=== PATIENT | male | born 1985 | race Two or more races ===

== ENCOUNTER 2020-06-28 14:38 | Inpatient (IN) ==
--- NOTE | 2020-06-28 14:53 | Emergency Department Note ---
Impression & Plan Acute GI bleeding, Syncope, Abdominal pain ED Provider Note NAME: DELANO HAILE AGE: 35 SEX: M : 1985 ARRIVES VIA: Ambulance INFORMANT: Patient, ED PROVIDER(S): Luis Fernando Balderas DO CHIEF COMPLAINT: Syncope HPI: The patient is a 35-year-old male who presented to the emergency department for an evaluation of syncope. The patient has been having multiple episodes of syncope ever since this morning. He states that every time he goes to stand up he passes out. His significant other presented to the emergency department with him. He arrived via ambulance. The patient denies having any chest pain or difficulty breathing. He does complain of abdominal pain. He states he is had intermittent abdominal pain over the last few days. He did have black bowel movements last week but states that that resolved on its own. He denies having any nausea or vomiting. He has no diarrhea. He has no headache or chest pain at this time. He denies having similar symptoms in the past. He is not seen his family doctor for the specific symptoms but was seen recently by his primary care physician. ROS: See above HPI for pertinent positives & negatives. A total of 10 systems reviewed and were otherwise negative. PAST MEDICAL HISTORY: See Below PAST SURGICAL HISTORY: See Below FAMILY HISTORY: See Below SOCIAL HISTORY: See Below HOME MEDICATIONS: See Below ALLERGIES: See Below VITALS: See Below PHYSICAL EXAMINATION: GENERAL: Patient is awake alert in no acute distress patient is resting comfo rtably and showing no signs of anxiety EYES: The conjunctivae are clear. The pupils are round and reactive. EARS, NOSE, MOUTH AND THROAT: The nose is without any evidence of any deformity. NECK: The neck is nontender and supple. RESPIRATORY: Normal respiratory effort is noted there is no evidence of wheezing rhonchi or rales CARDIOVASCULAR: Regular rate and rhythm noted there no murmurs rubs or gallops normal S1 normal S2. GASTROINTESTINAL: The lower abdomen is tender to palpation. There is no guarding rigidity. Rectal exam revealed maroon stool which was strongly heme positive. BACK: No midline tenderness or or step-off noted range of motion in flexion extension as well as rotation no signs of muscle spasm noted MUSCULOSKELETAL/EXTREMITIES: There is no evidence of gross deformity full range of motion is noted in the hips and shoulders. SKIN: There is no obvious evidence of any rash. There are no petechiae, pallor or cyanosis noted. NEUROLOGIC: Patient is awake alert and oriented x3 strength is symmetric patellar reflexes are 2+ bilaterally MEDICAL DECISION MAKING: The patient is a 35-year-old male who presented to the emergency department after having syncope. The patient had multiple episodes of syncope today. He was also experiencing abdominal pain. His physical exam was not consistent with an acute surgical abdomen however he did have maroon stool that was strongly heme positive. I discussed the patient's laboratory and radiographic studies with him. The patient was feeling much better after IV fluids. [facility] and put in [facility] orders. Triage Nursing notes reviewed. Prior medical records reviewed Vital Signs: reviewed and remarkable for no significant abnormalities Differential diagnosis: Vasovagal event, dehydration, infection, hypoglycemia, electrolyte abnorm alities, cardiac sources, intracerebral event, pulmonary embolism, seizure, toxicologic, neurologic, as well as other pathologies. ER treatment provided: See below Diagnostics interpreted by me: ECG: EKG was obtained in the emergency department. My interpretation is normal sinus rhythm at 88 bpm. There was no ectopy. There was no acute ST segment abnormalities. No previous tracing was available for comparison. Cardiac Monitoring: An order was placed for continuous cardiac monitoring. The monitor shows a rate of 92 bpm With sinus rhythm. Laboratory studies: As stated above and show below. Imaging studies: See below Consultation(s): 182: [facility] but did not return the call to me. Admission orders were placed Past Med/Surg History Medical History (Updated 06/28/20 @ 19:50 by Luis Fernando Balderas DO) Hx of fracture of tibia Social History (Updated 06/28/20 @ 14:53 by Luis Fernando Balderas DO) Smoking Status: Former smoker Hx Alcohol Use: No Hx Substance Use: No Preferred Language: Croatian Communication Ability: Effective Hand Or Machine Paster Required: No Beliefs That Will Affect Care: None Current Living Situation: Spouse and Family Other Information That Helps Us Care for You: No Feels Safe at Home: Yes Safety Concerns: Feels Safe At This Time Allergies Allergies Allergy/AdvReac Type Severity Reaction Status Date / Time No Known Allergies Allergy Unknown Verified 06/28/20 18:38 Home Meds Home Medications Medication Instructions Recorded Confirmed albuterol sulfate 2 puff INHALATION Q4 PRN 06/28/20 06/28/20 fexofenadine [Alisha Allergy] 180 mg PO DAILY PRN 06/28/20 06/28/20 fluticasone propionate [Flovent 2 puff INHALATION BID 06/28/20 06/28/20 HFA] Results & Data (ED) Vital Signs Vital Signs - 24 hr 06/28/20 14:47 06/28/20 17:17 06/28/20 18:00 Temperature 36.8 C Temperature Source Oral Pulse Rate 86 Pulse Rate [Finger] 76 81 Respiratory Rate 18 16 18 Respiratory Effort / Characteristics Non-Labored Respiratory Depth Normal Blood Pressure 128/82 Blood Pressure [Right Arm] 119/72 104/77 Blood Pressure Mean 97 Blood Pressure Mean [Right Arm] 87 86 Pulse Oximetry 97 97 97 Oxygen Delivery Method Room Air Room Air Sepsis Recent Fever Within 48 Hours No Sepsis New/Unexplained Change in Mental Status No Sepsis Action Taken by Nursing No Action Required Home Medications Current Medication List: was personally reviewed by me Laboratory Data Attestation: I reviewed the patient's lab results. Result diagrams: 06/28/20 14:45 06/28/20 14:45 Lab Results 06/28/20 06/28/20 06/28/20 Range/Units 14:45 14:45 14:45 WBC 7.08 (4.8-10.8) K/uL RBC 3.66 L (4.7-6.1) M/uL Hgb 11.0 L (14.0-18.0) g/dL Hct 33.2 L (42-52) % MCV 90.7 (80-100) fL MCH 30.1 (25-34) pg MCHC 33.1 (32-36) g/dL RDW Std Deviation 42.8 (36.4-46.3) fL RDW Coeff of Hayder 12.9 (11.5-14.5) % Plt Count 247 (130-400) K/uL MPV 9.5 (7.4-10.4) fL Immature Gran % (Auto) 0.1 % Neut % (Auto) 73.0 % Lymph % (Auto) 18.6 % [place] % (Auto) 7.6 % Eos % (Auto) 0.6 % Baso % (Auto) 0.1 % Neut # (Auto) 5.16 (1.4-6.5) K/uL Lymph # (Auto) 1.32 (1.2-3.4) K/uL [place] # (Auto) 0.54 (0.11-0.59) K/uL Eos # (Auto) 0.04 (0-0.5) K/uL Baso # (Auto) 0.01 (0-0.2) K/uL Immature Gran # (Auto) 0.01 (0.00-0.02) K/uL PT 11.0 (9.0-12.0) Seconds INR 1.0 (0.9-1.1) APTT 21.7 (21.0-31.0) Seconds PTT Ratio 0.8 Sodium 138 (136-145) mmol/L Potassium 4.7 (3.5-5.1) mmol/L Chloride 108 H (98-107) mmol/L Carbon Dioxide 25 (21-32) mmol/L Anion Gap 6.0 (3-11) BUN 25 H (7-18) mg/dl Creatinine 1.02 (0.6-1.4) mg/dl Est Cr Clr Drug Dosing 135.5 ml/min Est GFR ( Amer) 109.1 Est GFR (Non-Af Amer) 94.1 BUN/Creatinine Ratio 24.4 H (10-20) Glucose 129 H (70-99) mg/dl Calcium 8.3 L (8.5-10.1) mg/dl Magnesium 2.0 (1.8-2.4) mg/dl Total Bilirubin 0.4 (0.2-1) mg/dl AST 13 L (15-37) U/L ALT 21 (12-78) U/L Alkaline Phosphatase 42 L (45-117) U/L Total Creatine Kinase 182 (39-308) U/L CK-MB (CK-2) < 1.0 (0.5-3.6) ng/ml CK/CKMB % Calc TNP Troponin I 0.019 (0-0.045) ng/ml Total Protein 6.7 (6.4-8.2) gm/dl Albumin 3.4 (3.4-5.0) gm/dl Globulin 3.3 (2.5-4.0) gm/dl Albumin/Globulin Ratio 1.0 (0.9-2) Lipase 84 (73-393) U/L TSH 1.130 (0.300-4.500) uIu/ml Urine Color Urine Appearance (Clear) Urine pH (4.5-7.5) Ur Specific [place] (1.000-1.030) Urine Protein (Negative) Urine Glucose (UA) (Negative) Urine Ketones (Negative) Urine Blood (Negative) Urine Nitrite (Negative) Urine Bilirubin (Negative) Urine Urobilinogen (Negative) Ur Leukocyte Esterase (Negative) Blood Type Antibody Screen 06/28/20 06/28/20 Range/Units 15:18 17:15 WBC (4.8-10.8) K/uL RBC (4.7-6.1) M/uL Hgb (14.0-18.0) g/dL Hct (42-52) % MCV (80-100) fL MCH (25-34) pg MCHC (32-36) g/dL RDW Std Deviation (36.4-46.3) fL RDW Coeff of Hayder (11.5-14.5) % Plt Count (130-400) K/uL MPV (7.4-10.4) fL Immature Gran % (Auto) % Neut % (Auto) % Lymph % (Auto) % [place] % (Auto) % Eos % (Auto) % Baso % (Auto) % Neut # (Auto) (1.4-6.5) K/uL Lymph # (Auto) (1.2-3.4) K/uL [place] # (Auto) (0.11-0.59) K/uL Eos # (Auto) (0-0.5) K/uL Baso # (Auto) (0-0.2) K/uL Immature Gran # (Auto) (0.00-0.02) K/uL PT (9.0-12.0) Seconds INR (0.9-1.1) APTT (21.0-31.0) Seconds PTT Ratio Sodium (136-145) mmol/L Potassium (3.5-5.1) mmol/L Chloride (98-107) mmol/L Carbon Dioxide (21-32) mmol/L Anion Gap (3-11) BUN (7-18) mg/dl Creatinine (0.6-1.4) mg/dl Est Cr Clr Drug Dosing ml/min Est GFR ( Amer) Est GFR (Non-Af Amer) BUN/Creatinine Ratio (10-20) Glucose (70-99) mg/dl Calcium (8.5-10.1) mg/dl Magnesium (1.8-2.4) mg/dl Total Bilirubin (0.2-1) mg/dl AST (15-37) U/L ALT (12-78) U/L Alkaline Phosphatase (45-117) U/L Total Creatine Kinase (39-308) U/L CK-MB (CK-2) (0.5-3.6) ng/ml CK/CKMB % Calc Troponin I (0-0.045) ng/ml Total Protein (6.4-8.2) gm/dl Albumin (3.4-5.0) gm/dl Globulin (2.5-4.0) gm/dl Albumin/Globulin Ratio (0.9-2) Lipase (73-393) U/L TSH (0.300-4.500) uIu/ml Urine Color Yellow Urine Appearance Clear (Clear) Urine pH 7.5 (4.5-7.5) Ur Specific [place] 1.018 (1.000-1.030) Urine Protein Negative (Negative) Urine Glucose (UA) Negative (Negative) Urine Ketones Negative (Negative) Urine Blood Negative (Negative) Urine Nitrite Negative (Negative) Urine Bilirubin Negative (Negative) Urine Urobilinogen Negative (Negative) Ur Leukocyte Esterase Negative (Negative) Blood Type A Positive Antibody Screen NEGATIVE Administered Medications Discontinued Medications Sodium Chloride (Nss 1000ml) 1,000 mls @ 999 mls/hr IV .Q1H1M ONUR Stop: 06/28/20 16:00 Last Infusion: 06/28/20 16:50 Dose: 0 mls/hr Documented by: [id number] Admin: 06/28/20 15:32 Dose: 999 mls/hr Documented by: [id number] Pantoprazole Sodium 40 mg/ (Syringe) 10 mls @ 5 mls/min IV NOW ONE Stop: 06/28/20 14:56 Last Admin: 06/28/20 15:32 Dose: 5 mls/min Documented by: [id number] Ioversol (Ioversol 100ml) 94 ml IV ONCE ONE Stop: 06/28/20 16:10 Last Admin: 06/28/20 16:09 Dose: 94 ml Documented by: [id number] Imaging Data Radiologist's Impression: CT head/brain wo con CLINICAL HISTORY: syncope COMPARISON STUDY: No previous studies for comparison. TECHNIQUE: Axial CT of the brain is performed from the vertex to the skull base. IV contrast was not administered for this examination. A dose lowering technique was utilized adhering to the principles of ALARA. CT DOSE: 1865.23 mGy.cm FINDINGS: No intra or extra-axial mass lesions are visualized. There is no CT evidence of acute cortical infarction. There is no evidence of midline shift. There is no acute hemorrhage. No calvarial fractures are visualized. There is no evidence of pathologic ventricular dilatation. There is no evidence of acute sinusitis IMPRESSION: Normal noncontrast head CT. ACT 112: Negative or not required by law. Electronically signed by: Alireza Rai M.D. 06/28/2020 4:17 PM Dictated: 06/28/20 1616 Transcribed: 06/28/20 1616 XR chest 1V portable CLINICAL HISTORY: syncope COMPARISON STUDY: No previous studies for comparison. FINDINGS: The cardiac and mediastinal contours are normal. There is no evidence of focal pulmonary consolidation. There is no evidence of failure. No pleural effusions are visualized.[ IMPRESSION: No active disease in the chest. ACT 112: Negative or not required by law. Electronically signed by: Alireza Rai M.D. 06/28/2020 3:25 PM Dictated: 06/28/20 1525 Transcribed: 06/28/[address] abd pelvis IV con only CLINICAL HISTORY: Abdominal pain and syncope COMPARISON STUDY: None. TECHNIQUE: The patient was scanned in a dynamic helical fashion during intravenous administration of 94 cc of Optiray 320 A dose lowering technique was utilized adhering to the principles of ALARA. CT DOSE: FINDINGS: Lower chest: There are minimal basilar atelectatic changes. There is a small hiatal hernia Liver: The contrast-enhanced liver is normal in size, contour, and attenuation. There is no intrahepatic biliary ductal dilatation. The hepatic veins and portal veins are patent. Gallbladder: Contracted Spleen: Normal in size and attenuation. Pancreas: Unremarkable. Adrenal glands: Unremarkable. Kidneys: There is symmetric renal cortical enhancement. The kidneys are normal in size without hydronephrosis. Bowel: There are no transition zones to indicate bowel obstruction. The appendix appears normal. There is no evidence of acute diverticulitis. There is suggestion of mild jejunal wall thickening. There are multiple fluid-filled small bowel loops. There are scattered colonic air-fluid levels. The findings likely represent a mild enteritis. Peritoneum: There is no intraperitoneal free air or abdominal ascites. There is a small fat-containing right inguinal hernia versus lipomatous inguinal canal Vasculature: The abdominal aorta is normal in course and caliber. Adenopathy: None. Pelvic viscera: The bladder, and pelvic viscera are unremarkable. Skeletal structures: No destructive osseous lesions are seen. IMPRESSION: 1. No evidence of bowel obstruction. No evidence of free air 2. Normal appendix. No evidence of acute diverticulitis 3. Fluid-filled loops of small bowel and colon with mild jejunal wall thickening. The findings are suggestive of a mild enteritis ACT 112: Negative or not required by law. Electronically signed by: Alireza Rai M.D. 06/28/2020 4:21 PM Dictated: 06/28/20 1617 Transcribed: 06/28/20 1617 Blood Pressure Blood Pressure Findings: Normal blood pressure Discharge Plan Visit Data Chief Complaint: Syncope Stated Complaint: syncope ED Provider: Luis Fernando Balderas Discharge Problem: Acute GI bleeding, Syncope, Abdominal pain Patient Disposition: Admitted As Inpatient Condition: Good Discharge Instructions Interventions: ED Discharge Assessment Last Done: 06/28/20 18:49
[2020-06-28] MEDS ORDERED: PANTOprazole 40 MG in SYRINGE 0 ML IV ONE (14:55)
[2020-06-28] MEDS ORDERED: SODIUM CHLORIDE 0.9% 1000ML 1,000 ML IV SCH (15:00)
[2020-06-28 15:07] LABS: Basophils # (auto) 0.01 K/uL (0-0.2); Basophils % (auto) 0.1 %; Eosinophils # (auto) 0.04 K/uL (0-0.5); Eosinophils % (auto) 0.6 %; Hematocrit (blood only) 33.2 % (42-52); Immature Granulocytes # (auto) 0.01 K/uL (0.00-0.02); Immature Granulocytes % (auto) 0.1 %; Lymphocytes # (auto) 1.32 K/uL (1.2-3.4); Lymphocytes % (auto) 18.6 %; Mean Corpuscular Hemoglobin 30.1 pg (25-34); Mean Corpuscular Hgb Conc 33.1 g/dL (32-36); Mean Corpuscular Volume 90.7 fL (80-100); Mean Platelet Volume 9.5 fL (7.4-10.4); Monocytes # (auto) 0.54 K/uL (0.11-0.59); Monocytes % (auto) 7.6 %; Neutrophils # (auto) 5.16 K/uL (1.4-6.5); Platelet Count 247 K/uL (130-400); RDW Coefficient of Variation 12.9 % (11.5-14.5); RDW Standard Deviation 42.8 fL (36.4-46.3); Red Blood Count 3.66 M/uL (4.7-6.1); White Blood Count 7.08 K/uL (4.8-10.8)
[2020-06-28 15:14] LABS: Partial Thromboplastin Ratio 0.8; Partial Thromboplastin Time 21.7 Seconds (21.0-31.0)
[2020-06-28 15:25] LABS: Alanine Aminotransferase 21 U/L (12-78); Albumin Level 3.4 gm/dl (3.4-5.0); Aspartate Aminotransferase 13 U/L (15-37); BUN Creatinine Ratio 24.4 (10-20); Blood Urea Nitrogen 25 mg/dl (7-18); Calcium 8.3 mg/dl (8.5-10.1); Carbon Dioxide 25 mmol/L (21-32); Chloride 108 mmol/L (98-107); Creatinine Clr Calc Pharmacy 135.5 ml/min; Est GFR (African American) 109.1; Est GFR (Non-African American) 94.1; Glucose 129 mg/dl (70-99); Lipase 84 U/L (73-393); Potassium 4.7 mmol/L (3.5-5.1); Sodium 138 mmol/L (136-145)
--- NOTE | 2020-06-28 15:27 | XRay Report ---
XR chest 1V portable CLINICAL HISTORY: syncope COMPARISON STUDY: No previous studies for comparison. FINDINGS: The cardiac and mediastinal contours are normal. There is no evidence of focal pulmonary co nsolidation. There is no evidence of failure. No pleural effusions are visualized.[ IMPRESSION: No active disease in the chest. ACT 112: Negative or not required by law. Electronically signed by: Alireza Rai M.D. 06/28/2020 3:25 PM
[2020-06-28 15:36] LABS: Alkaline Phosphatase 42 U/L (45-117); Bilirubin,Total 0.4 mg/dl (0.2-1); Creatine Kinase 182 U/L (39-308); Creatine Kinase MB < 1.0 ng/ml (0.5-3.6); Globulin 3.3 gm/dl (2.5-4.0); Total Protein 6.7 gm/dl (6.4-8.2); Troponin I 0.019 ng/ml (0-0.045)
[2020-06-28] MEDS ORDERED: IOVERSOL 100ml IV ONE (16:09)
--- NOTE | 2020-06-28 16:18 | CT Scan Report ---
CT head/brain wo con CLINICAL HISTORY: syncope COMPARISON STUDY: No previous studies for comparison. TECHNIQUE: Axial CT of the brain is performed from the vertex to the skull base. IV contrast was not administered for this examination. A dose lowering technique was utilized adhering to the principles of ALARA. CT DOSE: 1865.23 mGy.cm FINDINGS: No intra or extra-axial mass lesions are visualized. There is no CT evidence of acute cortical infarc tion. There is no evidence of midline shift. There is no acute hemorrhage. No calvarial fractures ar e visualized. There is no evidence of pathologic ventricular dilatation. There is no evidence of acute sinusitis IMPRESSION: Normal noncontrast head CT. ACT 112: Negative or not required by law. Electronically signed by: Alireza Rai M.D. 06/28/2020 4:17 PM
--- NOTE | 2020-06-28 16:23 | CT Scan Report ---
CT abd pelvis IV con only CLINICAL HISTORY: Abdominal pain and syncope COMPARISON STUDY: None. TECHNIQUE: The patient was scanned in a dynamic helical fashion during intravenous administration of 94 cc of Optiray 320 A dose lowering technique was utilized adhering to the principles of ALARA. CT DOSE: FINDINGS: Lower chest: There are minimal basilar atelectatic changes. There is a small hiatal hernia Liver: The contrast-enhanced liver is normal in size, contour, and attenuation. There is no intrahepa tic biliary ductal dilatation. The hepatic veins and portal veins are patent. Gallbladder: Contracted Spleen: Normal in size and attenuation. Pancreas: Unremarkable. Adrenal glands: Unremarkable. Kidneys: There is symmetric renal cortical enhancement. The kidneys are normal in size without hydron ephrosis. Bowel: There are no transition zones to indicate bowel obstruction. The appendix appears normal. Ther e is no evidence of acute diverticulitis. There is suggestion of mild jejunal wall thickening. There are multiple fluid-filled small bowel loops. There are scattered colonic air-fluid levels. The findin gs likely represent a mild enteritis. Peritoneum: There is no intraperitoneal free air or abdominal ascites. There is a small fat-containin g right inguinal hernia versus lipomatous inguinal canal Vasculature: The abdominal aorta is normal in course and caliber. Adenopathy: None. Pelvic viscera: The bladder, and pelvic viscera are unremarkable. Skeletal structures: No destructive osseous lesions are seen. IMPRESSION: 1. No evidence of bowel obstruction. No evidence of free air 2. Normal appendix. No evidence of acute diverticulitis 3. Fluid-filled loops of small bowel and colon with mild jejunal wall thickening. The findings are voss ggestive of a mild enteritis ACT 112: Negative or not required by law. Electronically signed by: Alireza Rai M.D. 06/28/2020 4:21 PM
[2020-06-28 17:26] LABS: Appearance Urine Clear (Clear); Bilirubin Urine Negative (Negative); Blood Urine Negative (Negative); Color Urine Yellow; Glucose Urine UA Negative (Negative); Ketones Urine Negative (Negative); Leukocyte Esterase Urine Negative (Negative); Nitrite Urine Negative (Negative); Protein Urine Negative (Negative); Specific Gravity Urine 1.018 (1.000-1.030); Urobilinogen Urine Negative (Negative); pH Urine 7.5 (4.5-7.5)
--- NOTE | 2020-06-28 18:11 | History & Physical Report ---
Date of Service June 28, 2020 Assessment & Plan (1) Syncope: This is a 35-year-old male that presented with 3 episodes of syncope earlier today. He had no other injury. He did have loss of consciousness for up to 30 or 35 seconds. He also had heme positive stool with SAYRA by ER physician Recommendations: Patient has no history of prior heart disease or syncope. He denies any substance or tobacco abuse We will request an echocardiogram with bubble study We will also request carotid duplex Patient does have orthostatic hypotension on examination values at bedside are as follows * Laying down: SBP 131, HR 76 * Sitting: SBP 116, HR 88 * Standing SBP 104, HR 114 We will hydrate the patient with 125 mL/h of normal saline Check repeat orthostatic blood pressures Ambulation with assistance Patient has been hemodynamically stable throughout this hospital admission No evidence of sepsis We will monitor on telemetry floor (2) Acute GI bleeding: Patient reports dark stools 2 weeks ago with minor abdominal pain for 2 to 3 days Guaiac positive in the emergency room Will start on pantoprazole GI consult is been requested Follow serial H&H Follow on telemetry (3) Intermittent asthma: Home medications include albuterol MDI and Flovent HFA Also takes an antihistamine at home daily as needed Oxygenation adequate on room air No adventitious breath sounds Continue to follow (4) DVT prophylaxis: We will hold chemical prophylaxis in setting of guaiac positive stool SCDs IRA hose Please refer to Dr. Shields's addendum for further recommendations. History of Present Illness Primary Care Provider: Clyde Lakhani MD Attending: Dr. Shields This is a 35-year-old male with a past medical history including intermittent asthma and allergic rhinitis due to pollen. The patient presents today with acute syncope and reports 3 episodes of fainting with loss of consciousness earlier today. His was present and witnessed this. He had no injuries when falling. In the emergency department he was found to have orthostatic hypotension with appropriate response to heart rate and elevation. He does complain of some buzzing or bubbling in his ears when he sits up quickly or when he bends over at the waist up. This was a prodrome prior to his fainting earlier today. Patient denies any substance abuse. He does state that 2 weeks ago he had dark stool and some mild abdominal pain which resolved after 2 or 3 days. He denies any melena, hematochezia, or bright red blood per rectum. He denies any history of hemorrhoids. He denies any shortness of breath. He has no tachyarrhythmias. He denies any cough. He has no fever or chills. He has no history of peptic ulcer disease. He is not on a PPI or H2 jeanie. His appetite is been normal with no abdominal pain before during or after meals. He has no headache or h istory of migraines. 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 He wears a respirator whenever around vapors or chemicals. He has no tobacco abuse history He denies ethanol abuse He is and has 3 children at home. Allergies Allergy/AdvReac Type Severity Reaction Status Date / Time No Known Allergies Allergy Unknown Verified 06/28/20 18:38 Home Medications Home Medications Medication Instructions Recorded Confirmed Type albuterol sulfate 2 puff INHALATION Q4 PRN 06/28/20 06/28/20 History fexofenadine [Alisha Allergy] 180 mg PO DAILY PRN 06/28/20 06/28/20 History fluticasone propionate [Flovent 2 puff INHALATION BID 06/28/20 06/28/20 History HFA] Past Med/Surg History Medical History (Updated 06/28/20 @ 20:23 by Willi Clement PA-C) Allergic rhinitis Hx of fracture of tibia Intermittent asthma Surgical History (Updated 06/28/20 @ 20:23 by Willi Clement PA-C) No significant past surgical history Family History (Updated 06/28/20 @ 20:24 by Willi Clement PA-C) Other Family history non-contributory Social History (Updated 06/28/20 @ 14:53 by Luis Fernando Balderas DO) Smoking Status: Former smoker Hx Alcohol Use: No Hx Substance Use: No Preferred Language: Tristanian Communication Ability: Effective Veneer Marker Required: No Beliefs That Will Affect Care: None Current Living Situation: Spouse and Family Other Information That Helps Us Care for You: No Feels Safe at Home: Yes Safety Concerns: Feels Safe At This Time Review of Systems Review of Systems: All systems reviewed & are unremarkable except as noted in HPI & below Physical Exam Physical Exam: GENERAL : No acute distress EYES: No icterus, gaze conjugate NOSE: No evidence of epistaxis MOUTH: No lesions or candidiasis NECK: Supple LUNGS: CTA B/L, no wheezes, rales or rhonchi HEART: Regular, rate controlled ABDOMEN: Soft, NT, ND, BS Present EXTREMITIES: No LE edema, pedal pulses intact NEURO: A&OX3 Results & Data Results & Data ([facility]) Vital Signs (Past 12 Hours) Vital Signs Temp Pulse Pulse Resp BP BP Pulse Ox 06/28/20 17:17 76 16 119/72 97 06/28/20 14:47 36.8 C 86 18 128/82 97 Laboratory Results 06/28/20 14:45 06/28/20 14:45 INR 1.0 (0.9-1.1) 06/28/20 14:[address] head/brain wo con CLINICAL HISTORY: syncope COMPARISON STUDY: No previous studies for comparison. TECHNIQUE: Axial CT of the brain is performed from the vertex to the skull base. IV contrast was not administered for this examination. A dose lowering technique was utilized adhering to the principles of ALARA. CT DOSE: 1865.23 mGy.cm FINDINGS: No intra or extra-axial mass lesions are visualized. There is no CT evidence of acute cortical infarction. There is no evidence of midline shift. There is no acute hemorrhage. No calvarial fractures are visualized. There is no evidence of pathologic ventricular dilatation. There is no evidence of acute sinusitis IMPRESSION: Normal noncontrast head CT. ACT 112: Negative or not required by law. Electronically signed by: Alireza Rai M.D. 06/28/2020 4:17 PM XR chest 1V portable CLINICAL HISTORY: syncope COMPARISON STUDY: No previous studies for comparison. FINDINGS: The cardiac and mediastinal contours are normal. There is no evidence of focal pulmonary consolidation. There is no evidence of failure. No pleural effusions are visualized.[ IMPRESSION: No active disease in the chest. ACT 112: Negative or not required by law. Electronically signed by: Alireza Rai M.D. 06/28/2020 3:[address] abd pelvis IV con only CLINICAL HISTORY: Abdominal pain and syncope COMPARISON STUDY: None. TECHNIQUE: The patient was scanned in a dynamic helical fashion during intravenous administration of 94 cc of Optiray 320 A dose lowering technique was utilized adhering to the principles of ALARA. CT DOSE: FINDINGS: Lower chest: There are minimal basilar atelectatic changes. There is a small hiatal hernia Liver: The contrast-enhanced liver is normal in size, contour, and attenuation. There is no intrahepatic biliary ductal dilatation. The hepatic veins and portal veins are patent. Gallbladder: Contracted Spleen: Normal in size and attenuation. Pancreas: Unremarkable. Adrenal glands: Unremarkable. Kidneys: There is symmetric renal cortical enhancement. The kidneys are normal in size without hydronephrosis. Bowel: There are no transition zones to indicate bowel obstruction. The appendix appears normal. There is no evidence of acute diverticulitis. There is suggestion of mild jejunal wall thickening. There are multiple fluid-filled small bowel loops. There are scattered colonic air-fluid levels. The findings likely represent a mild enteritis. Peritoneum: There is no intraperitoneal free air or abdominal ascites. There is a small fat-containing right inguinal hernia versus lipomatous inguinal canal Vasculature: The abdominal aorta is normal in course and caliber. Adenopathy: None. Pelvic viscera: The bladder, and pelvic viscera are unremarkable. Skeletal structures: No destructive osseous lesions are seen. IMPRESSION: 1. No evidence of bowel obstruction. No evidence of free air 2. Normal appendix. No evidence of acute diverticulitis 3. Fluid-filled loops of small bowel and colon with mild jejunal wall thickening. The findings are suggestive of a mild enteritis ACT 112: Negative or not required by law. Electronically signed by: Alireza Rai M.D. 06/28/2020 4:21 PM Code Status & VTE Plan Code Status Level I: Full resuscitation VTE Prophylaxis Plan VTE Prophylaxis will be ordered: Yes Reason for no VTE drug order: Contraindicated Supervising Physician Co-Signing Physician Notes 35 yoM with acute syncope and orthostatic hypotension that began today. reports black stools for 2-3 dys 2 weeks ago which resolved spontaneously. This was not associated with lightheadedness, however, he states he has experienced stomach pain liz at night when lying down. He sees no association with food. He has a daughter who recently had the same issues with syncope x 3, and subsequently developed a severe GI illness including nausea and diarrhea. She is improved with just supportive care. His CT a/p reveals evidence of enteritis and he reports feeling his bowels "grumbling" as if he will need to have an urgent bowel movement soon. He was given 1L NSS in ER but is still orthostatic on the floor. Additional fluids ordered overnight. +FOBT in Er, however, I don't expect an acute GI bleed here because with orthostasis, he should have lost at least 15% of his blood volume and yet there is no overt bleeding. Suspect this is more consistent with what his daughter recently had, such as v iral AGE. Unremarkable physical aside from dizziness with changing position to sitting or standing and some mild TTP in LUQ over stomach area. He denies NSAIDs use, steroids or heavy alcohol use. Will add GI consult for evaluation, hold on Protonix and add stool culture with H pylori screen. Cont telemetry monitoring overnight and workup as above with echo and carotids in am. DO Cornelius (1) Syncope Syncope type: unspecified Qualified Code(s): R55 - Syncope and collapse
[2020-06-28] MEDS ORDERED: MAGNESIUM HYDROXIDE SUSP 30 ML UDC PO PRN (19:17)
[2020-06-28] MEDS ORDERED: ONDANSETRON INJ 2 MG/ML 2 ML VIAL IV PRN (19:17)
[2020-06-28] MEDS ORDERED: ACETAMINOPHEN 325 MG TAB PO PRN (19:17)
[2020-06-28] MEDS ORDERED: POLYETHYLENE (MIRALAX) 17 GM PACK PO PRN (19:17)
[2020-06-28] MEDS ORDERED: ALUMINUM/MAGNESIUM SUSP 30 ML UDC PO PRN (19:17)
[2020-06-28] MEDS: SODIUM CHLORIDE 0.9% 1000ML 1,000 ML IV SCH (20:00)
[2020-06-28] MEDS ORDERED: HEPARIN SOD 5,000 UNIT/0.5 ML VIAL SQ SCH (21:00)
[2020-06-29] MEDS: SODIUM CHLORIDE 0.9% 1000ML 1,000 ML IV SCH ×3 (03:55→20:01)
[2020-06-29 06:41] LABS: Basophils # (auto) 0.01 K/uL (0-0.2); Basophils % (auto) 0.2 %; Eosinophils # (auto) 0.06 K/uL (0-0.5); Eosinophils % (auto) 1.1 %; Hematocrit (blood only) 28.8 % (42-52); Hemoglobin 9.3 g/dL (14.0-18.0); Immature Granulocytes # (auto) 0.01 K/uL (0.00-0.02); Immature Granulocytes % (auto) 0.2 %; Lymphocytes # (auto) 2.02 K/uL (1.2-3.4); Lymphocytes % (auto) 35.9 %; Mean Corpuscular Hemoglobin 29.4 pg (25-34); Mean Corpuscular Hgb Conc 32.3 g/dL (32-36); Mean Corpuscular Volume 91.1 fL (80-100); Monocytes # (auto) 0.32 K/uL (0.11-0.59); Monocytes % (auto) 5.7 %; Neutrophils % (auto) 56.9 %; Platelet Count 195 K/uL (130-400); RDW Coefficient of Variation 13.3 % (11.5-14.5); Red Blood Count 3.16 M/uL (4.7-6.1); White Blood Count 5.62 K/uL (4.8-10.8)
[2020-06-29 07:11] LABS: BUN Creatinine Ratio 18.9 (10-20); Calcium 8.1 mg/dl (8.5-10.1); Creatinine Clr Calc Pharmacy 138.6 ml/min; Est GFR (African American) 113.1; Est GFR (Non-African American) 97.6; Potassium 4.1 mmol/L (3.5-5.1)
[2020-06-29] MEDS ORDERED: SODIUM CHLORIDE 0.9% 1000ML 1,000 ML IV ONE (08:38)
--- NOTE | 2020-06-29 09:09 | Ultrasound Report ---
CAROTID ARTERY ULTRASOUND CLINICAL HISTORY: Syncope COMPARISON STUDY: None. TECHNIQUE: Real-time, grayscale, and color Doppler sonography of the carotid and vertebral arteries w as performed. Images were viewed in the transverse and longitudinal planes. FINDINGS: There is no atherosclerotic plaque. Velocity measurements are listed below. COMMON CAROTID PEAK SYSTOLIC VELOCITY (CM/S): RIGHT 113 LEFT 155 ICA PEAK SYSTOLIC VELOCITY (CM/S): RIGHT 79 LEFT 99 Systolic ratios between the internal to common carotid arteries are normal. Antegrade flow is seen in the vertebral arteries. The external carotid arteries are patent. Blood pressure in the right arm measured 164/78. Blood pressure in the left arm measured 140/74. IMPRESSION: No evidence for a hemodynamically significant stenosis. ACT 112: Negative or not required by law. Electronically signed by: Mitchel Jacobo M.D. 06/29/2020 9:08 AM
--- NOTE | 2020-06-29 09:50 | Electrocardiogram Report ---
Test Reason : Blood Pressure : / mmHG Vent. Rate : 088 BPM Atrial Rate : 088 BPM P-R Int : 154 ms QRS Dur : 078 ms QT Int : 338 ms P-R-T Axes : 049 044 023 degrees QTc Int : 408 ms Normal sinus rhythm Normal ECG No previous ECGs available Confirmed by Todd Garcia ([id number]) on 06/29/2020 9:50:11 AM Referred By: Confirmed By:Todd Garcia
--- NOTE | 2020-06-29 10:05 | Electrocardiogram Report ---
Test Reason : Blood Pressure : / mmHG Vent. Rate : 064 BPM Atrial Rate : 064 BPM P-R Int : 160 ms QRS Dur : 088 ms QT Int : 394 ms P-R-T Axes : 069 076 053 degrees QTc Int : 406 ms Normal sinus rhythm with sinus arrhythmia Normal ECG When compared with ECG of 28-JUN-2020 14:51, (unconfirmed) No significant change was found Confirmed by Todd Garcia ([id number]) on 06/29/2020 10:05:30 AM Referred By: REFERRED SELF Confirmed By:Todd Garcia
--- NOTE | 2020-06-29 11:20 | Gastrointestinal Consultation ---
Date of Consultation June 29, 2020 Assessment & Plan (1) Acute GI bleeding: (2) Abdominal pain: (3) Melena: Increase Pantoprazole to 40 mg by mouth twice daily NPO after midnight Clear liquid diet today EGD tomorrow for further evaluation of cause of melena History of Present Illness Reason for Consultation: Syncope, Heme positive stool, melena Attending Physician: Alem Shields DO History of Present Illness 35 yo CM who presented to the ER with multiple episodes of syncope. He did not mid-epigastric abdominal pain rated as 6/10 in intensity, non-radiating described as sharp and burning, which was relieved with OTC TUMS, and exacerbated by spicy foods. He states that he did have some dark stools approximately 2 weeks ago as well. He did have a negative CT head and abd/pelvis in the ER, and was subsequently admitted and placed on pantoprazole therapy. He was noted to have an H/H of 11/33.2 on admission, however, it has decreased to 9.3/28.8 overnight. He denies any melena or hematemesis since his admission. He states that he does still have some abdominal pain in the epigastric area, which is intermittent, 4/10 in intensity, and non-radiating at present. He denies any recent travel or known exposure to H. pylori. He states that he does not use NSAID's regularly. He further denies any fevers, chills, nausea, vomiting, or other complaints. He has never had an EGD or colonoscopy in the past. Allergies Allergy/AdvReac Type Severity Reaction Status Date / Time No Known Allergies Allergy Unknown Verified 06/28/20 18:38 Home Medications Home Medications Medication Instructions Recorded Confirmed Type albuterol sulfate 2 puff INHALATION Q4 PRN 06/28/20 06/28/20 History fexofenadine [Alisha Allergy] 180 mg PO DAILY PRN 06/28/20 06/28/20 History fluticasone propionate [Flovent 2 puff INHALATION BID 06/28/20 06/28/20 History HFA] Patient History Medical History (Updated 06/29/20 @ 11:19 by Leo Yeung DO) Allergic rhinitis Hx of fracture of tibia Intermittent asthma Surgical History (Updated 06/28/20 @ 20:23 by Willi Clement PA-C) No significant past surgical history Family History (Updated 06/28/20 @ 20:24 by Willi Clement PA-C) Other Family history non-contributory Social History (Updated 06/28/20 @ 14:53 by Luis Fernando Balderas DO) Smoking Status: Former smoker Hx Alcohol Use: No Hx Substance Use: No Preferred Language: Zimbabwean Communication Ability: Effective Customer Success Intern Required: No Beliefs That Will Affect Care: None Current Living Situation: Spouse and Family Other Information That Helps Us Care for You: No Feels Safe at Home: Yes Safety Concerns: Feels Safe At This Time Review of Systems Review of Systems: All systems reviewed & are unremarkable except as noted in HPI & below Physical Exam Constitutional: WD/WN, vitals as above Eyes: PERRL, conjunctivae normal, anicteric sclerae ENMT: external ear and nose normal, oropharynx normal Neck: trachea midline, no thyromegaly Respiratory: normal respiratory effort, lungs clear to auscultation Cardiovascular: RRR, no murmur, no edema Gastrointestinal (Abdomen): normal bowel sounds, soft, nontender, no hepatosplenomegaly Skin: no rashes, warm and dry Psychiatric: A+Ox3, euthymic affect Results & Data ([facility]) Vital Signs (Past 12 Hours) Vital Signs Temp Pulse Pulse Resp BP Pulse Ox 06/29/20 10:51 80 06/29/20 08:12 36.8 C 79 18 124/70 99 06/29/20 04:12 37.2 C 85 17 121/70 96 06/29/20 00:11 80 06/28/20 23:58 36.8 C 76 17 117/71 95 PG Care Time/CCT Total # of Minutes Spent Total Time Spent with Patient: Total time spent is greater than 50% in coordination of care (as documented) at patient's floor/unit and/or counseling patient: Coding Level of Care Code 19656 Inpt Consult Level 3 Diagnoses Acute GI bleeding K92.2 Abdominal pain R10.84 Abdominal location: generalized Melena K92.1 (1) Abdominal pain Abdominal location: generalized Qualified Code(s): R10.84 - Generalized abdominal pain
--- NOTE | 2020-06-29 11:31 | Hospitalist Progress Note ---
Date of Service June 29, 2020 Assessment & Plan (1) Melena: possible slower GIB that began two weeks ago. PPT BID per GI who was consulted. Clears today with EGD planned for am. Remains orthostatic. Cont IVF. No hematochezia overnight. Abdominal pain improved. (2) Syncope: Likely 2/2 orthostatic hypotension possible related to melena from a GI bleed. Carotid US and echo were unremarkable. Telemetry review was unremarkable overnight. (3) Abdominal pain: resolved overnight. (4) Acute blood loss anemia: vs dilutional. Recheck later in the day and monitor hemodynamics and for any melena. (5) DVT prophylaxis: SCDs Full Code Dispo-cont PCU, EGD in am, NPO p MN for this. Plan for home when medically s table. Alem Shields DO [facility] Hospitalist Admission and Anticipated Discharge Date Admission Date: June 28, 2020 Subjective feeling well today but hasn't gotten up out of bed no further BM overnight denies abdominal pain this morning denies fevers or chills. still orthostatic with anemia on labs Review of Systems Review of Systems: All systems reviewed & are unremarkable except as noted in Subjective Physical Exam Physical Exam: CONSTITUTIONAL: WNWD, vitals as above, generally well-appearing EYES: normal conjunctivae, no scleral icterus ENT: external ear and nose normal, MMM RESPIRATORY: clear to auscultation bilaterally, no crackles, rales or wheezes, normal respiratory effort CARDIOVASCULAR: regular rate and rhythm, S1 and 2 heard without murmurs, gallops or rubs, no JVD, no peripheral edema GASTROINTESTINAL: normal bowel sounds, soft, nontender, nondistended. MUSCULOSKELETAL: strength 5/5 throughout, head is normocephalic and atraumatic SKIN: warm and dry NEUROLOGIC: CN 2-12 grossly intact, no sensory deficit, normal cognition, normal speech, no tremor PSYCHIATRIC: alert cooperative and oriented to person, place and time. Results & Data Results & Data ([facility]) Vital Signs (Past 12 Hours) Vital Signs Temp Pulse Pulse Resp BP Pulse Ox 06/29/20 10:51 80 06/29/20 08:12 36.8 C 79 18 124/70 99 06/29/20 04:12 37.2 C 85 17 121/70 96 06/29/20 00:11 80 06/28/20 23:58 36.8 C 76 17 117/71 95 Laboratory Results Short CBC 06/28/20 06/29/20 Range/Units 14:45 06:23 WBC 7.08 5.62 (4.8-10.8) K/uL Hgb 11.0 L 9.3 L (14.0-18.0) g/dL Hct 33.2 L 28.8 L (42-52) % Plt Count 247 195 (130-400) K/uL BMP 06/28/20 06/29/20 14:45 06:23 Sodium 138 143 Potassium 4.7 4.1 Chloride 108 H 113 H Carbon Dioxide 25 25 BUN 25 H 19 H Creatinine 1.02 0.99 Glucose 129 H 90 Calcium 8.3 L 8.1 L Cardiac Enzymes 06/28/20 Range/Units 14:45 Total Creatine Kinase 182 (39-308) U/L CK-MB (CK-2) < 1.0 (0.5-3.6) ng/ml Troponin I 0.019 (0-0.045) ng/ml Liver Function 06/28/20 Range/Units 14:45 Total Bilirubin 0.4 (0.2-1) mg/dl AST 13 L (15-37) U/L ALT 21 (12-78) U/L Alkaline Phosphatase 42 L (45-117) U/L Albumin 3.4 (3.4-5.0) gm/dl Urine 06/28/20 Range/Units 17:15 Urine Color Yellow Urine Appearance Clear (Clear) Urine pH 7.5 (4.5-7.5) Ur Specific [place] 1.018 (1.000-1.030) Urine Protein Negative (Negative) Urine Glucose (UA) Negative (Negative) Medications Administered Current Inpatient Medications Acetaminophen (Acetaminophen 325 Mg Tab) 650 mg PO Q4H PRN PRN Reason: Pain or Fever Stop: 07/28/20 19:16 Al Hydrox/Mg Hydrox/Simethicone (Aluminum/Magnesium Susp 30 Ml Udc) 15 ml PO Q4H PRN PRN Reason: Dyspepsia Stop: 07/28/20 19:16 Sodium Chloride (Nss 1000ml) 1,000 mls @ 125 mls/hr IV .Q8H ONUR Stop: 07/28/20 19:16 Last Admin: 06/29/20 03:55 Dose: 125 mls/hr Documented by: Magnesium Hydroxide (Magnesium Hydroxide Susp 30 Ml Udc) 30 ml PO Q12H PRN PRN Reason: Constipation Stop: 07/28/20 19:16 Ondansetron HCl (Ondansetron Inj 2 Mg/Ml 2 Ml Vial) 4 mg IV Q6H PRN PRN Reason: Nausea Stop: 07/28/20 19:16 Pantoprazole Sodium (Pantoprazole 40 Mg Tab) 40 mg PO BID ONUR Stop: 07/29/20 11:29 Polyethylene Glycol (Polyethylene (Miralax) 17 Gm Pack) 17 gm PO DAILY PRN PRN Reason: Constipation Stop: 07/28/20 19:16 (1) Syncope Syncope type: unspecified Qualified Code(s): R55 - Syncope and collapse (2) Abdominal pain Abdominal location: generalized Qualified Code(s): R10.84 - Generalized abdominal pain
[2020-06-29] MEDS: PANTOprazole 40 MG TAB PO SCH ×2 (12:10→20:01)
[2020-06-29 19:00] LABS: Hematocrit (blood only) 27.6 % (42-52); Hemoglobin 9.1 g/dL (14.0-18.0); Mean Corpuscular Hemoglobin 30.4 pg (25-34); Mean Corpuscular Volume 92.3 fL (80-100); Platelet Count 189 K/uL (130-400); RDW Coefficient of Variation 13.5 % (11.5-14.5); RDW Standard Deviation 44.9 fL (36.4-46.3); Red Blood Count 2.99 M/uL (4.7-6.1); White Blood Count 4.05 K/uL (4.8-10.8)
[2020-06-30] MEDS: SODIUM CHLORIDE 0.9% 1000ML 1,000 ML IV SCH ×2 (03:42→11:26)
[2020-06-30 08:03] LABS: Hematocrit (blood only) 27.9 % (42-52); Hemoglobin 9.3 g/dL (14.0-18.0); Mean Corpuscular Hemoglobin 30.3 pg (25-34); Mean Corpuscular Hgb Conc 33.3 g/dL (32-36); Mean Corpuscular Volume 90.9 fL (80-100); Mean Platelet Volume 8.6 fL (7.4-10.4); Platelet Count 186 K/uL (130-400); RDW Coefficient of Variation 13.3 % (11.5-14.5); RDW Standard Deviation 43.8 fL (36.4-46.3); Red Blood Count 3.07 M/uL (4.7-6.1); White Blood Count 4.83 K/uL (4.8-10.8)
--- NOTE | 2020-06-30 08:19 | Anesthesiology Consultation ---
Date of Service June 30, 2020 Assessment & Plan (1) Encounter for pre-operative examination: Chart Review Chart Review: Acceptable Risk for Surgery History Surgery Operation Date: 06/30/20 16:25 Proposed Procedures p Esophagogastroduodenoscopy Dr Gamal Yeung, Height/Weight Height: 6 ft 3 in Weight: 110.6 kg Allergies Allergy/AdvReac Type Severity Reaction Status Date / Time No Known Allergies Allergy Unknown Verified 06/28/20 18:38 Medications Home Medications Medication Instructions Recorded Confirmed Last Taken albuterol sulfate 2 puff INHALATION Q4 PRN 06/28/20 06/28/20 Unknown fexofenadine [Alisha Allergy] 180 mg PO DAILY PRN 06/28/20 06/28/20 Unknown fluticasone propionate [Flovent 2 puff INHALATION BID 06/28/20 06/28/20 Unknown HFA] Active Medications Generic Name Dose Route Start Last Admin Trade Name Freq PRN Reason Stop Dose Admin Sodium Chloride 1,000 mls @ 125 mls/hr 06/28/20 19:17 06/30/20 03:42 Nss 1000ml IV 07/28/20 19:16 125 mls/hr .Q8H ONUR Administration Pantoprazole Sodium 40 mg 06/29/20 11:30 06/29/20 20:01 Pantoprazole 40 Mg Tab PO 07/29/20 11:29 40 mg BID ONUR Administration Past Medical History Medical History (Updated 06/30/20 @ 08:20 by Salomon Hernández MD) Acute blood loss anemia Allergic rhinitis Hx of fracture of tibia Intermittent asthma Syncope Past Family History Family History (Updated 06/28/20 @ 20:24 by Willi Clement PA-C) Other Family history non-contributory Past Surgical History Surgical History (Updated 06/28/20 @ 20:23 by Willi Clement PA-C) No significant past surgical history Social History Smoking Status: Former smoker Hx Alcohol Use: No Hx Substance Use: No Physical Exam Vital Signs Last Vital Signs Temp 36.8 C 06/30/20 04:05 Pulse 75 06/30/20 04:05 Resp 18 06/30/20 04:05 BP 101/60 06/30/20 04:05 Pulse Ox 97 06/30/20 04:05 Testing Laboratory Results 06/30/20 07:52 06/29/20 06:23 PT 11.0 Seconds (9.0-12.0) 06/28/20 14:45 INR 1.0 (0.9-1.1) 06/28/20 14:45 APTT 21.7 Seconds (21.0-31.0) 06/28/20 14:45 Urine Color Yellow 06/28/20 17:15 Urine Appearance Clear (Clear) 06/28/20 17:15 Urine pH 7.5 (4.5-7.5) 06/28/20 17:15 Ur Specific [place] 1.018 (1.000-1.030) 06/28/20 17:15 Urine Protein Negative (Negative) 06/28/20 17:15 Urine Glucose (UA) Negative (Negative) 06/28/20 17:15 Urine Ketones Negative (Negative) 06/28/20 17:15 Urine Nitrite Negative (Negative) 06/28/20 17:15 Ur Leukocyte Esterase Negative (Negative) 06/28/20 17:15 Blood Type A Positive 06/28/20 15:18 Antibody Screen NEGATIVE 06/28/20 15:18
[2020-06-30] MEDS: PANTOprazole 40 MG TAB PO SCH (08:24)
--- NOTE | 2020-06-30 09:35 | Electrocardiogram Report ---
Test Reason : Blood Pressure : / mmHG Vent. Rate : 056 BPM Atrial Rate : 056 BPM P-R Int : 170 ms QRS Dur : 090 ms QT Int : 402 ms P-R-T Axes : 069 059 051 degrees QTc Int : 387 ms Sinus bradycardia with marked sinus arrhythmia Otherwise normal ECG When compared with ECG of 29-JUN-2020 07:06, No significant change was found Confirmed by Luis Fernando Hernandez ([id number]) on 06/30/2020 9:35:40 AM Referred By: REFERRED SELF Confirmed By:Luis Fernando Hernandez
--- NOTE | 2020-06-30 09:37 | History & Physical Bridge Note ---
Date of Service June 30, 2020 History & Physical Bridge Note I have examined the patient, reviewed the History & Physical and in the interval since the performance of the History & Physical I have noted the following changes of clinical significance: no changes noted. Patient remains NPO for EGD. No further melena, abdominal pain or other GI complaints today. PE:A&Ox3. Lungs CTA bilaterally. RRR no M/R/G. Abdomen soft, nontender. Normal bowel sounds. A/P:Melena and acute blood loss anemia. Keep NPO. Proceed with EGD with Dr. Yeung today. Supervising Physician Co-Signing Physician Notes Agree with CHRISTIAN Luo Abd: Soft, NT, ND, +BS Continue current therapy Proceed with EGD today
--- NOTE | 2020-06-30 15:36 | Hospitalist Progress Note ---
Date of Service June 30, 2020 Assessment & Plan (1) Melena: Currently NPO in preparation for procedure today. Cont PPI BID. Denies abdominal pain or melena today (2) Syncope: Likely 2/2 orthostatic hypotension possible related to melena from a GI bleed. Carotid US and echo were unremarkable. Telemetry review was unremarkable overnight. After IVF resuscitation, he has been ambulating in room without difficulty.. (3) Acute blood loss anemia: vs dilutional. Recheck later in the day and monitor hemodynamics and for any melena. (4) DVT prophylaxis: SCDs Full Code Dispo-cont PCU, EGD today, DC to home based on EGD findings and GI recommendations. Alem Shields DO [facility] Hospitalist Admission and Anticipated Discharge Date Admission Date: June 29, 2020 Subjective feeling well today no BM since admission denies abdominal pain this morning denies fevers or chills. Review of Systems Review of Systems: All systems reviewed & are unremarkable except as noted in Subjective Physical Exam Physical Exam: CONSTITUTIONAL: WNWD, vitals as above, generally well- appearing EYES: normal conjunctivae, no scleral icterus ENT: external ear and nose normal, MMM RESPIRATORY: clear to auscultation bilaterally, no crackles, rales or wheezes, normal respiratory effort CARDIOVASCULAR: regular rate and rhythm, S1 and 2 heard without murmurs, gallops or rubs, no JVD, no peripheral edema GASTROINTESTINAL: normal bowel sounds, soft, nontender, nondistended. MUSCULOSKELETAL: strength 5/5 throughout, head is normocephalic and atraumatic SKIN: warm and dry NEUROLOGIC: CN 2-12 grossly intact, no sensory deficit, normal cognition, normal speech, no tremor PSYCHIATRIC: alert cooperative and oriented to person, place and time. Results & Data Results & Data ([facility]) Vital Signs (Past 12 Hours) Vital Signs Temp Pulse Pulse Resp BP BP Pulse Ox 06/30/20 15:29 69 06/30/20 12:08 36.7 C 68 20 105/66 98 06/30/20 08:21 36.4 C L 62 18 109/69 97 06/30/20 08:00 59 L 06/30/20 04:05 36.8 C 75 18 101/60 97 Laboratory Results Short CBC 06/29/20 06/30/20 Range/Units 18:52 07:52 WBC 4.05 L 4.83 (4.8-10.8) K/uL Hgb 9.1 L 9.3 L (14.0-18.0) g/dL Hct 27.6 L 27.9 L (42-52) % Plt Count 189 186 (130-400) K/uL Medications Administered Current Inpatient Medications Acetaminophen (Acetaminophen 325 Mg Tab) 650 mg PO Q4H PRN PRN Reason: Pain or Fever Stop: 07/28/20 19:16 Al Hydrox/Mg Hydrox/Simethicone (Aluminum/Magnesium Susp 30 Ml Udc) 15 ml PO Q4H PRN PRN Reason: Dyspepsia Stop: 07/28/20 19:16 Sodium Chloride (Nss 1000ml) 1,000 mls @ 125 mls/hr IV .Q8H ONUR Stop: 07/28/20 19:16 Last Infusion: 06/30/20 15:15 Dose: 0 mls/hr Documented by: Magnesium Hydroxide (Magnesium Hydroxide Susp 30 Ml Udc) 30 ml PO Q12H PRN PRN Reason: Constipation Stop: 07/28/20 19:16 Ondansetron HCl (Ondansetron Inj 2 Mg/Ml 2 Ml Vial) 4 mg IV Q6H PRN PRN Reason: Nausea Stop: 07/28/20 19:16 Pantoprazole Sodium (Pantoprazole 40 Mg Tab) 40 mg PO BID ONUR Stop: 07/29/20 11:29 Last Admin: 06/30/20 08:24 Dose: 40 mg Documented by: Polyethylene Glycol (Polyethylene (Miralax) 17 Gm Pack) 17 gm PO DAILY PRN PRN Reason: Constipation Stop: 07/28/20 19:16 (1) Syncope Syncope type: unspecified Qualified Code(s): R55 - Syncope and collapse
[2020-06-30] MEDS ORDERED: LIDOCAINE HCL 2% 2 ML VIAL/AMP(20MG/ML) INFIL ONE (15:59)
[2020-06-30] MEDS ORDERED: PROPOFOL IV EMULSION 10 MG/ML 20 ML VIAL IV ONE (15:59)
--- NOTE | 2020-06-30 16:36 | GI REPORT ---
Patient Name: Donald Christy Procedure Date: 06/30/2020 3:53 PM Date of : 1985 Admit Type: Inpatient Age: 35 Gender: Male Attending MD: Leo Yeung DO Procedure: Upper GI endoscopy Providers: Leo Yeung DO Referring MD: Clyde Lakhani Indications: Melena Medicines: Monitored Anesthesia Care Complications: No immediate complications. Estimated Blood Loss: Estimated blood loss: none. Procedure: Pre-Anesthesia Assessment: - Prior to the procedure, a History and Physical was performed, and patient medications and allergies were reviewed. The patient's tolerance of previous anesthesia was also reviewed. The risks and benefits of the procedure and the sedation options and risks were discussed with the patient. All questions were answered, and informed consent was obtained. Prior Anticoagulants: The patient has taken no previous anticoagulant or antiplatelet agents. ASA Grade Assessment: II - A patient with mild systemic disease. After reviewing the risks and benefits, the patient was deemed in satisfactory condition to undergo the procedure. After obtaining informed consent, the endoscope was passed under direct vision. Throughout the procedure, the patient's blood pressure, pulse, and oxygen saturations were monitored continuously. The Endoscope was introduced through the mouth, and advanced to the second part of duodenum. The upper GI endoscopy was accomplished without difficulty. The patient tolerated the procedure well. Findings: The examined esophagus was normal. Localized moderate inflammation characterized by erythema was found in the gastric antrum. Biopsies were taken with a cold forceps for Helicobacter pylori testing. Two non-bleeding cratered duodenal ulcers with no stigmata of bleeding were found in the duodenal bulb. The largest lesion was 15 mm in largest dimension. Impression: - Normal esophagus. - Gastritis. Biopsied. - Multiple non-bleeding duodenal ulcers with no stigmata of bleeding. Recommendation: - [facility]. - Use Protonix (pantoprazole) 40 mg PO BID. - Advance diet as tolerated. - Await pathology results. Leo Yeung DO 06/30/2020 4:35:46 PM This report has been signed electronically. Note Initiated On: 06/30/2020 3:53 PM Number of Addenda: 0 I attest to the content of the Intraoperative Record and orders documented therein, exceptions below {[id number]}
--- NOTE | 2020-06-30 16:39 | Anesthesiology Progress Note ---
Date of Service June 30, 2020 Anesthesia Post Procedure Vital Signs Vital Signs: Temp Pulse Pulse Resp BP BP Pulse Ox 06/30/20 16:25 77 14 122/71 97 06/30/20 16:10 84 16 114/72 97 06/30/20 15:29 69 06/30/20 15:22 36.8 C 70 16 116/63 96 06/30/20 12:08 36.7 C 68 20 105/66 98 06/30/20 08:21 36.4 C L 62 18 109/69 97 06/30/20 08:00 59 L 06/30/20 04:05 36.8 C 75 18 101/60 97 06/29/20 23:49 37.0 C 73 17 118/69 98 06/29/20 23:40 79 06/29/20 20:12 36.9 C 78 17 127/79 99 06/29/20 19:17 Pulse Ox 06/30/20 16:25 06/30/20 16:10 06/30/20 15:29 06/30/20 15:22 06/30/20 12:08 06/30/20 08:21 06/30/20 08:00 06/30/20 04:05 06/29/20 23:49 06/29/20 23:40 06/29/20 20:12 06/29/20 19:17 99 Transfer of Care Handoff Completed per policy Notes Mental Status: alert / awake / arousable Patient Amnestic to Procedure: Yes Nausea / Vomiting: adequately controlled Pain: adequately controlled Airway Patency, RR, SpO2: stable & adequate BP & HR: stable & adequate Hydration State: stable & adequate Anesthetic Complications: no major complications apparent
--- NOTE | 2020-06-30 18:12 | Discharge Summary ---
Date of Service June 30, 2020 Admission HPI Per Admitting Provider Attending: Dr. Shields This is a 35-year-old male with a past medical history including intermittent asthma and allergic rhinitis due to pollen. The patient presents today with acute syncope and reports 3 episodes of fainting with loss of consciousness earlier today. His was present and witnessed this. He had no injuries when falling. In the emergency department he was found to have orthostatic hypotension with appropriate response to heart rate and elevation. He does complain of some buzzing or bubbling in his ears when he sits up quickly or when he bends over at the waist up. This was a prodrome prior to his fainting earlier today. Patient denies any substance abuse. He does state that 2 weeks ago he had dark stool and some mild abdominal pain which resolved after 2 or 3 days. He denies any melena, hematochezia, or bright red blood per rectum. He denies any history of hemorrhoids. He denies any shortness of breath. He has no tachyarrhythmias. He denies any cough. He has no fever or chills. He has no history of peptic ulcer disease. He is not on a PPI or H2 jeanie. His appetite is been normal with no abdominal pain before during or after meals. He has no headache or history of migraines. 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 He wears a respirator whenever around vapors or chemicals. He has no tobacco abuse history He denies ethanol abuse He is and has 3 children at home. Admission Exam Per Admitting Provider GENERAL : No acute distress EYES: No icterus, gaze conjugate NOSE: No evidence of epistaxis MOUTH: No lesions or candidiasis NECK: Supple LUNGS: CTA B/L, no wheezes, rales or rhonchi HEART: Regular, rate controlled ABDOMEN: Soft, NT, ND, BS Present EXTREMITIES: No LE edema, pedal pulses intact NEURO: A&OX3 Principal Diagnosis Nonbleeding Duodenal ulcers s/ EGD 2/2 H pylori Syncope Acute blood loss anemia Discharge Exam CONSTITUTIONAL: WNWD, vitals as above, generally well-appearing EYES: normal conjunctivae, no scleral icterus ENT: external ear and nose normal, MMM RESPIRATORY: clear to auscultation bilaterally, no crackles, rales or wheezes, normal respiratory effort CARDIOVASCULAR: regular rate and rhythm, S1 and 2 heard without murmurs, gallops or rubs, no JVD, no peripheral edema GASTROINTESTINAL: normal bowel sounds, soft, nontender, nondistended. MUSCULOSKELETAL: strength 5/5 throughout, head is normocephalic and atraumatic SKIN: warm and dry NEUROLOGIC: CN 2-12 grossly intact, no sensory deficit, normal cognition, normal speech, no tremor PSYCHIATRIC: alert cooperative and oriented to person, place and time. Discharge Data Allergies Allergy/AdvReac Type Severity Reaction Status Date / Time No Known Allergies Allergy Unknown Verified 06/28/20 18:38 Consultations 06/28/20 18:22 ED Decision to Admit Stat 06/28/20 19:56 Consult Gastroenterology Routine Procedures Performed Operation Date: 06/30/20 16:25 Actual Procedures p EGD Biopsy Cytology - Leo Lemus Case, DO Ordered Studies CAROTID ARTERY ULTRASOUND CLINICAL HISTORY: Syncope COMPARISON STUDY: None. FINDINGS: There is no atherosclerotic plaque. Velocity measurements are listed below. COMMON CAROTID PEAK SYSTOLIC VELOCITY (CM/S): RIGHT 113 LEFT 155 ICA PEAK SYSTOLIC VELOCITY (CM/S): RIGHT 79 LEFT 99 Systolic ratios between the internal to common carotid arteries are normal. Antegrade flow is seen in the vertebral arteries. The external carotid arteries are patent. Blood pressure in the right arm measured 164/78. Blood pressure in the left arm measured 140/74. IMPRESSION: No evidence for a hemodynamically significant stenosis. Electronically signed by: Mitchel Jacobo M.D. 06/29/2020 9:[address] head/brain wo con CLINICAL HISTORY: syncope COMPARISON STUDY: No previous studies for comparison. FINDINGS: No intra or extra-axial mass lesions are visualized. There is no CT evidence of acute cortical infarction. There is no evidence of midline shift. There is no acute hemorrhage. No calvarial fractures are visualized. There is no evidence of pathologic ventricular dilatation. There is no evidence of acute sinusitis IMPRESSION: Normal noncontrast head CT. Electronically signed by: Alireza Rai M.D. 06/28/2020 4:17 PM XR chest 1V portable CLINICAL HISTORY: syncope COMPARISON STUDY: No previous studies for comparison. FINDINGS: The cardiac and mediastinal contours are normal. There is no evidence of focal pulmonary consolidation. There is no evidence of failure. No pleural effusions are visualized.[ IMPRESSION: No active disease in the chest. Electronically signed by: Alireza Rai M.D. 06/28/2020 3:[address] abd pelvis IV con only CLINICAL HISTORY: Abdominal pain and syncope FINDINGS: Lower chest: There are minimal basilar atelectatic changes. There is a small hiatal hernia Liver: The contrast-enhanced liver is normal in size, contour, and attenuation. There is no intrahepatic biliary ductal dilatation. The hepatic veins and portal veins are patent. Gallbladder: Contracted Spleen: Normal in size and attenuation. Pancreas: Unremarkable. Adrenal glands: Unremarkable. Kidneys: There is symmetric renal cortical enhancement. The kidneys are normal in size without hydronephrosis. Bowel: There are no transition zones to indicate bowel obstruction. The appendix appears normal. There is no evidence of acute diverticulitis. There is suggestion of mild jejunal wall thickening. There are multiple fluid-filled small bowel loops. There are scattered colonic air-fluid levels. The findings li carmela represent a mild enteritis. Peritoneum: There is no intraperitoneal free air or abdominal ascites. There is a small fat-containing right inguinal hernia versus lipomatous inguinal canal Vasculature: The abdominal aorta is normal in course and caliber. Adenopathy: None. Pelvic viscera: The bladder, and pelvic viscera are unremarkable. Skeletal structures: No destructive osseous lesions are seen. IMPRESSION: 1. No evidence of bowel obstruction. No evidence of free air 2. Normal appendix. No evidence of acute diverticulitis 3. Fluid-filled loops of small bowel and colon with mild jejunal wall thickening. The findings are suggestive of a mild enteritis Electronically signed by: Alireza Rai M.D. 06/28/2020 4:21 PM Hospital Course (1) Melena: (2) Syncope: (3) Acute blood loss anemia: 35-year-old man presented to the ER with multiple episodes of syncope earlier that day. Was a static vital signs were checked and positive and he was given IV fluids. He did report epigastric abdominal pain 2 weeks ago relieved with Tums and exacerbated by spicy foods and reported some dark stools 2 weeks ago as well. These have since resolved. He also reported his 7-year-old daughter had a recent viral illness that was preceded by multiple episodes of syncope, and she is better now. He had a negative CT head and negative abdomen pelvis CT in the ER and was admitted and placed on Protonix therapy. He was noted to have an H&H of 11/33.2 on admission which decreased with IV fluids overnight to 9.3/29. He had no melena or hematemesis this admission but there was intermittent epigastric discomfort that was minor. He denied any use of NSAIDs regularly, he is not a heavy drinker by report and denies any history of steroid use. He never had an EGD or colonoscopy in the past. He was admitted to the hospital service and placed on telemetry. GI was consulted and recommended n.p.o. after midnight for EGD the following day. EGD was performed on 06/30/2020 hand revealed gastritis with a normal esophagus and multiple nonbl eeding duodenal ulcers with no stigmata of bleeding. Protonix was increased to 40 mg twice daily and the biopsy results revealed H. pylori. He was given treatment after discharge and will return to GI as outpatient. At time of discharge she was hemodynamically stable and afebrile and tolerating p.o. He was mentating and ambulating at baseline and discharged in stable condition with close primary care follow-up recommended. Of note during the hospitalization he also did have an echocardiogram in the setting of syncope revealing normal left ventricular systolic function, and ejection fraction 60 to 65%, normal left ventricular wall motion function and no significant valvular pathology. Also of note the H. pylori diagnosis came back after the patient was discharged and therefore the documentation does not reflect H. pylori as inpatient. Total Time Total Time Spent Total Time Spent (In Minutes): 60 Total Time Includes: Examination of the Patient, Discharge Planning, Medication Reconciliation and Communication With Other Providers Discharge Plan Discharge Items Patient Disposition: Home - Self-Care Reason For Visit: SYNCOPE Discharge Diagnosis: Nonbleeding Duodenal ulcers s/ EGD Syncope Acute blood loss anemia Condition on Discharge: Good Activity: Resume your previous activity Non-emergency contact: Primary Care Provider Call non-emergency contact if: you have any medication questions, your symptoms worsen, your pain is concerning for you and you have a fever Follow-up/Referrals: Clyde Lakhani MD [Primary Care Provider] - Diet: Regular Addtl Attending Provider Instructions: Please take all medications as instructed on discharge list below You were found to have multiple non-bleeding ulcers in the first part of your small bowel. The treatment in to take Protonix twice daily. It is important that you followup with your primary care physician within 1 week to discuss the results of your biopsies from the endoscopy and ensure you are doing well and your syncope (passing out) hasn't returned. Please seek immediate medical attention if you see black, tarry stool again moving forward. Please contact Dr. Leo Yeung in Gastroenterology for a followup appointment in 6 weeks time. It was a pleasure taking care of you! Please call if you have any questions or problems. You can reach a [facility] hospitalist on duty at [facility] 24 hours a day by calling [phone]. Take care of yourself. Alem Shields, DO [facility] Hospitalist Pending Studies at Discharge: Yes Studies:: GI pathology Stand-Alone Forms: My [facility] Medications and DC Order Prescriptions: New pantoprazole 40 mg Tablet,Delayed Release (Dr/Ec) 40 mg PO BID Qty: 60 RF: 1 Continued fexofenadine [Alisha Allergy] 180 mg Tablet 180 mg PO DAILY PRN (Reason: ALLEREGIES) RF: 0 albuterol sulfate 90 mcg/actuation HFA aerosol inhaler 2 puff INHALATION Q4 PRN (Reason: Wheezing) RF: 0 Flovent HFA 110 mcg/actuation HFA aerosol inhaler 2 puff INHALATION BID RF: 0 No Action clarithromycin 500 mg tablet 500 mg PO BID 14 Days Qty: 28 RF: 0 amoxicillin 500 mg capsule 1,000 mg PO BID 14 Days Qty: 56 RF: 0 Discharge Orders: Discharge Order (Routine); Ordered 06/30/20 Ordered By: Alem Shields Admission Data Admit Date/Time: 06/29/20 11:28 Attending Provider: Alem Shields Admit Provider: Alem Shields Primary Care Provider: Clyde Lakhani Other Providers: Alem Shields ; Leo Yeung Other Interventions: Discharge Summary Assessment (RN) Last Done: 06/30/20 18:15
[2020-06-30] MEDS ORDERED: PANTOprazole 40 MG TAB PO SCH (19:00)
== END 2020-06-30 18:59 | disposition home or self-care (01) | DRG 384 ==
LOC: 2S 14:38 → ED 14:38 → 2S 18:49